=== PATIENT | female | born 2000 | race Hispanic/Latino ===

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

== ENCOUNTER 2018-10-16 15:46 | Emergency (ER) | payer OTHER ==
[2018-10-16] MEDS ORDERED: Ketorolac Tromethamine 30 MG/ML VIAL ONE (16:20)
--- NOTE | 2018-10-16 16:20 | RAD ---
2 views of the chest: 10/16/2018 COMPARISON: None HISTORY: Chest pain, shortness of breath FINDINGS: No pneumothorax or pleural fluid. No focal consolidation or alveolar edema. Heart and media stinal contours are grossly unremarkable. IMPRESSION: No acute findings.
[2018-10-16 16:46] LABS: #Eosinphils 0.1 thou/uL (0.0-0.7); #Lymphocytes 2.2 thou/uL (1.20-3.40); #Monocytes 0.4 thou/uL (0.11-0.59); #Neutrophils 4.4 thou/uL (1.40-6.50); %Basophils 0.4 % (0.0-1.0); %Eosinophils 0.8 % (0.0-10.0); %Lymphocytes 31.1 % (28.0-48.0); %Neutrophils 62.6 % (31.0-61.0); Hemoglobin 13.6 g/dL (12.0-16.0); Mean Corpuscular HGB CONC 35.4 g/dL (32.0-36.0); Mean Corpuscular Hemoglobin 34.6 pg (25.0-35.0); Mean Corpuscular Volume 97.6 fL (78.0-98.0); Platelet Count 261 thou/uL (130-400); RBC Distribution Width 10.8 % (11.5-14.5); Red Blood Cell (RBC) Count 3.93 mill/uL (4.00-5.20); White Blood Cell (WBC) Count 7.1 thou/uL (4.8-10.8)
[2018-10-16 16:53] LABS: BHCG - Serum Negative (NEGATIVE); Pregs Control Background? CLEAR/WHITE (CLR/WHITE); Pregs Control Bar Appear? YES (CONTROL BAR)
[2018-10-16 17:08] LABS: ALT (SGPT) 10 U/L (8-55); AST (SGOT) 15 U/L (5-34); Albumin 4.3 g/dL (3.5-5.0); Alkaline Phosphatase 77 U/L (40-150); Anion Gap 12 mmol/L (10-20); BUN (Urea Nitrogen) 8 mg/dL (7.0-18.7); Bilirubin, Total 1.3 mg/dL (0.2-1.2); CK (CPK) 97 U/L (29-168); Calc. Creatinine Clearance 0 mL/min (70-130); Calcium 8.9 mg/dL (7.8-10.44); Carbon Dioxide 23 mmol/L (22-29); Chloride 106 mmol/L (98-107); Estimated GFR-MDRD Greater than 90; Globulin 2.4 g/dL (2.4-3.5); Glucose 95 mg/dL (70-105); Potassium 3.8 mmol/L (3.5-5.1); Protein, Total 6.7 g/dL (6.0-8.3); Sodium 137 mmol/L (136-145)
== END 2018-10-16 18:50 | disposition home or self-care (01) ==
LOC: ERS 15:46
DX: R07.89 Other chest pain (principal); F32.9 Major depressive disorder, single episode, unspecified; F41.0 Panic disorder [episodic paroxysmal anxiety]
CPT/HCPCS: 36415; 71046; 80053; 82550; 84484; 84703; 85025; 85379; 93005; 96374; J1885

== ENCOUNTER 2019-04-13 09:41 | Emergency (ER) | payer BC, MEDICAID, SELFPAY ==
--- NOTE | 2019-04-13 11:46 | ULT ---
EXAM: Pelvic ultrasound HISTORY: Abdominal pain in a female. COMPARISON: None TECHNIQUE: Multiple grayscale and color Doppler images were obtained in a transabdominal and transvag inal pelvic ultrasound. Spectral analysis of the Doppler waveforms of the ovaries were performed. FINDINGS: CERVIX: No evidence of nabothian cysts. UTERUS: There is a small round anechoic region within the endometrial stripe measuring 0.30 cm. If th is is a gestational sac, this would estimate gestational age at 5 weeks 0 days. This does not contain a yolk sac or pole. A small amount of free fluid is seen in the pelvis. RIGHT OVARY: Normal flow without focal mass. LEFT OVARY: Normal flow without focal mass. IMPRESSION: Possible very early intrauterine .
[2019-04-13 13:24] LABS: Bacteria/HPF None Seen HPF (None Seen); Bilirubin Negative (Negative); Blood, Urine 1+ (Negative); Clarity Clear (Clear); Glucose, Urine (Dipstick) Normal (Negative); Leukocyte 25 Leu/uL (Negative); Mucous/LPF 2+ LPF (<2+); Nitrite Negative (Negative); Protein, Urine (Dipstick) 20 mg/dL (Neg-Trace); Urobilinogen Normal mg/dL (Less than 2)
[2019-04-15 22:04] LABS: GC by PCR Inconclusive (NotDetected)
[2019-04-15 22:09] LABS: Chlamydia by PCR Inconclusive (NotDetected)
== END 2019-04-13 14:25 | disposition home or self-care (01) ==
LOC: ERS 09:41
DX: O98.811 Other maternal infectious and parasitic diseases complicating pregnancy, first trimester (principal); B37.3 Candidiasis of vulva and vagina; O23.591 Infection of other part of genital tract in pregnancy, first trimester; B96.89 Other specified bacterial agents as the cause of diseases classified elsewhere; F32.9 Major depressive disorder, single episode, unspecified; O99.341 Other mental disorders complicating pregnancy, first trimester; F41.0 Panic disorder [episodic paroxysmal anxiety]
CPT/HCPCS: 36415; 76856; 81003; 81015; 84702; 86900; 86901; 87480; 87491; 87510; 87591; 87660; 96360

== ENCOUNTER 2019-04-26 19:49 | Emergency (ER) | payer MEDICAID ==
[2019-04-26] MEDS ORDERED: Ondansetron PF 4 MG/2 ML Vial ONE (20:28)
[2019-04-26 21:02] LABS: Pregnancy Test - Urine (BHCG) POSITIVE (Negative); Pregu Control Background? CLEAR/WHITE (CLR/WHITE); Pregu Control Bar Appear? YES (CONTROL BAR)
[2019-04-26 21:13] LABS: Bilirubin Negative (Negative); Blood, Urine Trace (Negative); Clarity Extra Turbid (Clear); Glucose, Urine (Dipstick) Normal (Negative); Leukocyte 250 Leu/uL (Negative); Nitrite Negative (Negative); Protein, Urine (Dipstick) 70 mg/dL (Neg-Trace)
[2019-04-26 21:15] LABS: Bacteria/HPF 1+ HPF (None Seen)
[2019-04-26] MEDS ORDERED: Promethazine HCl 25 MG/ML VIAL ONE (21:53)
== END 2019-04-26 23:32 | disposition home or self-care (01) ==
LOC: ERS 19:49
DX: O99.281 Endocrine, nutritional and metabolic diseases complicating pregnancy, first trimester (principal); E86.0 Dehydration; O21.9 Vomiting of pregnancy, unspecified; O99.341 Other mental disorders complicating pregnancy, first trimester; F32.9 Major depressive disorder, single episode, unspecified; F41.0 Panic disorder [episodic paroxysmal anxiety]; Z3A.01 Less than 8 weeks gestation of pregnancy
CPT/HCPCS: 81003; 81015; 81025; 96361; 96365; 96375; J2405; J2550

== ENCOUNTER 2019-11-08 08:50 | Observation (INO) | payer OTHER ==
[2019-11-08] MEDS ORDERED: hydrALAZINE 20 MG/ML VIAL SLOW IVP PRN (09:12)
--- NOTE | 2019-11-08 09:19 | PDOC.LDHP ---
Labor and Delivery H&P Chief complaint: contractions HPI: 19YO @ 34.5 WGA presenting to L&D with a CC of contractions. Reports they started at ~0500 but lasted ~2 minutes before stopping. However, they started back at ~0730 and and gradually were felt to be closer together and stronger so she decided to come to L&D for evaluation. Denies any VB or LOF. + FM. Does report increased white/mucoid d/c and some vaginal itching for the last 1-2 days but no dysuria, hematuria, or N/V/D. Has had good PO hydration and PO intake. Reports a Hx of a LTCS for NRFHTs and plan for this is a rLTCS JUANJO for 12/08/19. Current gestational age (weeks): 34 (34.5) Due date: 12/15/19 Grav: 2 Para: 1 (0101) OB History Details: #1: delivery @ 36.1 WGA (initially presented with contractions) via pLTCS for oligohydramnios w/ NRFHTs. Current complications: none Abnormal US findings: No Current medications: pre-omar vitamins Previous surgical history: low tranverse CS Allergies/Adverse Reactions: Allergies Allergy/AdvReac Type Severity Reaction Status Date / Time No Known Allergies Allergy Verified 05/08/19 19:13 Social history: none - Physical Exam Vital signs reviewed and normal: yes General: NAD, breathing through contractions Heart: RRR Lungs: nonlabored breathing Abdomen: NTTP Extremeties: no edema FHT: category 1 - Vaginal Exam cm dilated: 0 Effacement: 0% Station: -3 - OB Labs GBS: unknown - Plan Plan: to OR for section, other -: 19YO @ 34.5 WGA presenting for evaluation for contractions. contractions, r/o labor: - Only some uterine variability noted on the monitor since arrival. Patient appeared comfortable during entire interview & evaluation. FHTs reassuring with variability & accels noted. SVE closed/thick/high. Will obtain a UA & VP3 to screen for UTI and/or vaginal infections that could be contributing to this. Will give 1L of LR & encourage PO hydration as well. Will offer stadol as well. Addendum - Attending - Attending Attestation Date/Time: 11/08/19 1040 I personally evaluated the patient and discussed the management with Dr. Monteiro. 34 week IUP with prev. C/S here with UCs and closed cervix. I agree with the History, Examination, Assessment and Plan documented above.
[2019-11-08 09:28] VITALS: BMI 27.6
[2019-11-08] MEDS ORDERED: Butorphanol Tartrate 1 MG/ML VIAL SLOW IVP SCH (09:45)
[2019-11-08] MEDS ORDERED: Lactated Ringer's 1,000 ML IV SCH ×2 (09:45→11:30)
[2019-11-08 11:15] LABS: Bacteria/HPF None Seen HPF (None Seen); Bilirubin Negative (Negative); Blood, Urine Negative (Negative); Clarity Clear (Clear); Glucose, Urine (Dipstick) Normal (Negative); Ketone, Urine Negative (Negative); Leukocyte 25 Leu/uL (Negative); Nitrite Negative (Negative); Protein, Urine (Dipstick) Negative (Neg-Trace); RBC/HPF 0-3 HPF (0-3); Specific Gravity, Urine 1.007 (1.002-1.036); Squamous Epithelial 0-3 HPF (0-3); Urobilinogen Normal mg/dL (Less than 2); WBC/HPF 0-3 HPF (0-3); pH, Urine 7.5 (5.0-9.0)
--- NOTE | 2019-11-08 11:16 | PDOC.LDPN ---
Labor & Delivery Progress Note - Subjective Subjective: painful contractions - Objective Vital signs reviewed and normal: yes General: breathing through contractions Uterine fundus: palpable contractions (mildly palpable) Dilation: 0 Effacement: 0% Station: -3 FHT: category 1 Coburn contractions every: 3-4 minutes Resuscitative measures: maternal IV fluids, other (IV stadol) Plan: other -: 19YO @ 34.5 WGA presenting for evaluation for contractions. contractions, r/o labor: - Contractions noted q3-4 minutes on the monitor since last evaluation & patient reporting they are more painful. FHTs reassuring with variability & accels noted. Cervix remains closed/thick/high. UA & VP3 results still pending. Will give an additional liter of LR & will now give stadol IV x1 as patient did not want it earlier. Dispo: Continue close monitoring and resuscitative measures in attempt to cease contractions. Addendum - Attending - Attending Attestation Date/Time: 11/08/19 6730 I personally evaluated the patient and discussed the management with Dr. Monteiro. I agree with the History, Examination, Assessment and Plan documented above.
[2019-11-08 11:17] LABS: Urine Culture Reflex Yes Yes
[2019-11-08] MEDS ORDERED: Promethazine HCl 25 MG/ML VIAL IM PRN (12:29)
[2019-11-08] MEDS ORDERED: Ondansetron PF 4 MG/2 ML Vial IVP PRN (12:29)
[2019-11-08] MEDS ORDERED: Acetaminophen 500 MG TAB PO PRN (12:29)
--- NOTE | 2019-11-08 12:34 | PDOC.LDPN ---
Labor & Delivery Progress Note - Subjective Subjective: painful contractions - Objective Vital signs reviewed and normal: yes General: NAD, breathing through contractions Dilation: 0 Effacement: 0% Station: -3 FHT: category 1 Goessel contractions every: irregular contraction pattern on monitor Resuscitative measures: other -: 19YO @ 34.5 WGA presenting for evaluation for contractions. contractions: - Contractions have spaced out on the monitor since the last evaluation after stadol and an additional liter but patient reports they are still regular & painful. FHTs still cat 1. Cervix closed/thick/high on first 2 cervical checks. UA & VP3 notable for no UTI but + for nicole & BV which could explain contractions. Nicole and BV: - Will give PO diflucan & metronidazole to tx infections which could be the cause of her contractions. Dispo: Will admit for observation with continued close monitoring given persistent reported contractions and h/o rapid cervical change with first . Will give 10mg PO nifedipine Q6H for tocolysis and betamethasone 12mg IM Q24 HR x2 for lunch maturity. Addendum - Attending - Attending Attestation Date/Time: 11/08/19 8513 I personally evaluated the patient and discussed the management with Dr. Monteiro. Discussed with Dr. Mclaughlin. Will start steroids and Procardia and observe closely. Will do repeat C/S for active labor. I agree with the History, Examination, Assessment and Plan documented above.
[2019-11-08] MEDS ORDERED: metroNIDAZOLE 500 MG TAB PO SCH (12:45)
[2019-11-08] MEDS: Betamet Acet/Betamet Na Ph 30 MG/5 ML VIAL IM SCH (13:16)
[2019-11-08] MEDS: NIFEdipine 10 MG CAP PO SCH ×2 (13:16→19:14)
--- NOTE | 2019-11-08 18:08 | ULT ---
[facility] History: labor Comparison: None. Findings: Real-time grayscale color and spectral analysis of the gravid uterus was performed. The cervix is closed and measures 3.8 cm in length. Single viable intrauterine with heart r ate documented at 139 bpm. The placental location is anterior and the presentation is vertex. CHIN: 11.3 cm. The average ultrasound age is 35 week 1 day with estimated date of delivery December 09, 2019. Estimated weight is 5 lbs. 13 oz. Impression: 1. Normal single viable . 2. Closed cervix measuring 3.8 cm in length. 3. CHIN: 11.3 cm. 4. Anterior placenta with vertex presentation. 5. Estimated weight of 5 lbs. 13 oz.
[2019-11-08 18:58] LABS: Hemoglobin 11.5 g/dL (12.0-16.0); Mean Corpuscular HGB CONC 33.9 g/dL (32.0-36.0); Mean Corpuscular Hemoglobin 31.8 pg (27.0-31.0); Mean Corpuscular Volume 93.9 fL (78.0-98.0); Mean Platelet Volume 8.5 fL (7.4-10.4); Platelet Count 282 thou/uL (130-400); RBC Distribution Width 11.1 % (11.5-14.5); Red Blood Cell (RBC) Count 3.62 mill/uL (4.20-5.40); White Blood Cell (WBC) Count 14.6 thou/uL (4.8-10.8)
[2019-11-08] MEDS: metroNIDAZOLE 500 MG TAB PO SCH (21:04)
[2019-11-09] MEDS: NIFEdipine 10 MG CAP PO SCH ×4 (01:03→16:37)
--- NOTE | 2019-11-09 03:10 | PDOC.EVN ---
Event Note - Event Note Event Note: 34 6/7 weeks. Sleeping. VSS AF. FHTs remain reassuring. No UCs seen at present. Plan: Continue Procardia and give 2nd dose of BMX later today.
[2019-11-09 08:37] VITALS: BP 117/64; TEMP 99.3
[2019-11-09] MEDS: metroNIDAZOLE 500 MG TAB PO SCH ×2 (08:51→19:30)
[2019-11-09] MEDS ORDERED: Fluconazole 100 MG TAB PO SCH (09:00)
--- NOTE | 2019-11-09 11:11 | PDOC.EVN ---
Event Note - Event Note Event Note: Pt is complaining of bloody show and worsening contractions. repeat sve is closed thick and high. ega 34.6 2nd dose of bmtz today 12:30 [place] fetus vertex with cat one tracing Pt diet advanced to regular will assess for discharge this evening.
[2019-11-09] MEDS: Betamet Acet/Betamet Na Ph 30 MG/5 ML VIAL IM SCH (12:17)
[2019-11-09 13:27] LABS: SARS-CoV-2 MS2 Positive; SARS-CoV-2 N Gene Negative; SARS-CoV-2 S Gene Negative; SARS-CoV-2 by NAA Not Detected (NotDetected); SARS-CoV-2 orf1ab Negative
--- NOTE | 2019-11-10 01:04 | DIS ---
DATE OF ADMISSION: 11/08/2019 DATE OF DISCHARGE: 11/09/2019 PRIMARY OB: Keagan Mclaughiln MD CHIEF COMPLAINT: Uterine contractions. HISTORY OF PRESENT ILLNESS: The patient is a 19-year-old G2, P1 female with an intrauterine at 34 weeks and 5 days, presenting to Labor and Delivery with complaints of contractions. She reported this started in the morning of presentation, lasting 2 minutes. The patient's contractions became closer and closer together and patient decided to come to Labor and Delivery for evaluation. The patient has a history of delivery around the same gestational age by . During her initial evaluation, the patient was noted to have cervical exam closed, but having contractions every 3 to 4 minutes on the monitor that progressed during her stay. Decision was made to admit the patient for steroids for lung maturity and tocolysis. She is also noted to have on initial evaluation bacterial vaginosis and Nicole infection for which treatment was instituted i.e. fluconazole treatment x1 and metronidazole. During her stay, the patient received two doses of betamethasone. She was taken off Procardia this morning on hospital day #2 and throughout the course of the day, the patient continued to have some contractions, though had no change on her cervix. By this evening, the patient had a cervical exam of closed thick and high. tracing remained reactive and category one throughout the stay. Vital signs at the time of discharge, blood pressure is 118/71, heart rate of 82, saturating 99% on room air. She is discharged home with instructions to follow up with Dr. Mclaughlin as scheduled and has been given labor precautions. The patient does live here in [facility] and fetus is in vertex presentation. Job ID: [id number]
== END 2019-11-09 19:30 | disposition home or self-care (01) ==
LOC: L&D/OP 08:50 → L&D 17:02
PROVIDERS: ADMIT Obstetrics & Gynecology; ATTEND Obstetrics & Gynecology
DX: O47.03 False labor before 37 completed weeks of gestation, third trimester (principal); O98.813 Other maternal infectious and parasitic diseases complicating pregnancy, third trimester; B37.3 Candidiasis of vulva and vagina; O23.593 Infection of other part of genital tract in pregnancy, third trimester; B96.89 Other specified bacterial agents as the cause of diseases classified elsewhere; O34.211 Maternal care for low transverse scar from previous cesarean delivery; O09.213 Supervision of pregnancy with history of pre-term labor, third trimester; Z3A.34 34 weeks gestation of pregnancy; Z20.828 Contact with and (suspected) exposure to other viral communicable diseases
CPT/HCPCS: 36415; 76815; 81001; 85027; 86850; 86900; 86901; 87086; 87480; 87510; 87635; 87660; 96361; 96372; 96374; 99285; G0378; J0595; J0702; J2405; U0003

== ENCOUNTER 2019-11-12 09:23 | Inpatient (IN) | payer OTHER ==
[2019-11-12] MEDS ORDERED: Bicitra 30 ML UDCUP ONE (09:38)
[2019-11-12] MEDS ORDERED: PHENYLEPHRINE-NS 100 MCG/ML 10 ML SYRINGE ONE (09:43)
[2019-11-12] MEDS ORDERED: Fentanyl 250 MCG/5 ML VIAL ONE (09:43)
[2019-11-12] MEDS ORDERED: PROPOFOL 20 ML ONE (09:43)
[2019-11-12] MEDS ORDERED: EPHEDRINE 25 MG/5 ML SYRINGE ONE (09:43)
[2019-11-12] MEDS ORDERED: Oxytocin 10 UNITS/ML VIAL ONE ×2 (09:43→10:15)
[2019-11-12] MEDS ORDERED: Succinylcholine Chloride 20 MG/ML 10 ml SYRINGE FS ONE (09:43)
[2019-11-12] MEDS ORDERED: Fentanyl 100 MCG/2 ML VIAL ONE (10:12)
[2019-11-12] MEDS ORDERED: Ondansetron PF 4 MG/2 ML Vial ONE (10:15)
[2019-11-12] MEDS ORDERED: Dexamethasone 4 mg/ml Vial ONE ×2 (10:15→10:32)
[2019-11-12] MEDS ORDERED: Ketorolac Tromethamine 30 MG/ML VIAL ONE (10:15)
[2019-11-12] MEDS ORDERED: Metoclopramide HCl 10 MG/2 ML VIAL ONE (10:17)
[2019-11-12] MEDS ORDERED: Lactated Ringer's 1,000 ML IV SCH ×2 (10:33)
[2019-11-12] MEDS ORDERED: Promethazine HCl 25 MG/ML VIAL IM PRN ×3 (10:33→13:56)
[2019-11-12] MEDS ORDERED: hydrALAZINE 20 MG/ML VIAL SLOW IVP PRN ×2 (10:33→13:56)
[2019-11-12] MEDS ORDERED: Butorphanol Tartrate 1 MG/ML VIAL SLOW IVP PRN (10:33)
[2019-11-12] MEDS ORDERED: Bicitra 30 ML UDCUP PO SCH (10:33)
[2019-11-12] MEDS ORDERED: Ondansetron PF 4 MG/2 ML Vial IVP PRN ×3 (10:33→13:56)
[2019-11-12] MEDS ORDERED: CEFAZOLIN 2 GM in Premix Bag 1 BAG IVPB SCH (10:33)
--- NOTE | 2019-11-12 11:07 | OP ---
DATE OF PROCEDURE: 11/12/2019 TIME OF SERVICE: 10:05. PREOPERATIVE DIAGNOSES: 35 weeks gestation, placental abruption with labor. POSTOPERATIVE DIAGNOSES: 35 weeks gestation, placental abruption with labor. PROCEDURE PERFORMED: Repeat low-transverse section without extension. NEWSPAPER ILLUSTRATOR: Anika Otoole MD, PGY-3 for Family Medicine Residency. ANESTHESIA: Subarachnoid block. QUANTITATIVE BLOOD LOSS: Pending. MEDICATIONS: 2 g Ancef preincision, DVT prophylaxis SCDs. DRAINS: Cuevas to gravity. OPERATIVE FINDINGS: 1. Female infant, cephalic presentation, Apgars and weight pending. Clear fluid with extra membranous blood and clot consistent with abruption. 2. Mildly Couvelaire uterus. 3. Placenta spontaneously without identifiable clot. 4. Anterior uterus consistent with prolonged chronic retroplacental clot, likely secondary to abruption involving approximately 20% of the anterior surface of the uterus. 5. Normal-appearing tubes and ovaries bilaterally. 6. Hemostasis, clear urine. COUNTS: Correct at the end of the procedure. DISPOSITION: Recovery room in good condition. DESCRIPTION OF PROCEDURE: After obtaining appropriate informed consent, the patient was taken to the operating room, where subarachnoid block was achieved without difficulty. The patient was prepped and draped in usual manner for section. Previous Pfannenstiel identified, incised sharply, and carried down to the fascia, extended superiorly and laterally with curved Flores scissors. Rectus dissected off sharply superiorly and inferiorly, divided in midline. Peritoneum entered bluntly to avoid trauma to the underlying viscera. Devyn O retractor was placed inside. Couvelaire lower uterine segment was noted. Vesicouterine peritoneum was incised sharply, dissected off lower uterine segment. Low transverse hysterotomy was performed and infant's head was delivered. Rest of the infant delivered. Cord clamped and cut, and handed off to the team in attendance. Cord blood sample obtained. Cord gas attempted to be obtained, but was not by nursing staff on placenta that delivered spontaneously immediately after the delivery. Hysterotomy was inspected, noted to be without extension and closed using a running locking #1 Monocryl suture x1. Good hemostasis was noted. The patient had moderate nausea during the hysterotomy closure. The bowel was kept inside with a moist laparotomy sponge, which was removed prior to removing the Devyn O retractor. Gutters were irrigated out bilaterally. Reinspection of hysterotomy revealed it to be dry. The Devyn O was removed. Rectus was reapproximated using a #1 Monocryl. Counts were correct and the fascia was reapproximated using a 0 PDS suture x2. Subcutaneous tissue was irrigated rendered hemostatic with Bovie cautery, reapproximated using a 2-0 plain gut. Skin reapproximated using a 4-0 Monocryl and Dermabond. Counts correct x2. The patient entered into routine postoperative care. Job ID: [id number]
[2019-11-12 11:10] LABS: Hemoglobin 12.2 g/dL (12.0-16.0); Mean Corpuscular HGB CONC 32.9 g/dL (32.0-36.0); Mean Corpuscular Hemoglobin 31.3 pg (27.0-31.0); Mean Corpuscular Volume 95.1 fL (78.0-98.0); Platelet Count 334 thou/uL (130-400); RBC Distribution Width 11.3 % (11.5-14.5); White Blood Cell (WBC) Count 13.5 thou/uL (4.8-10.8)
[2019-11-12] MEDS ORDERED: diphenhydrAMINE 50 MG/ML VIAL IVP PRN (11:11)
[2019-11-12] MEDS ORDERED: Promethazine HCl 25 MG SUPP PR PRN (11:11)
[2019-11-12] MEDS ORDERED: HYDROmorphone 2 MG/ML VIAL SLOW IVP PRN (11:11)
[2019-11-12] MEDS ORDERED: Meperidine HCl/PF 25 MG/ML VIAL SLOW IVP PRN (11:11)
[2019-11-12] MEDS ORDERED: Naloxone HCl 0.4 mg/ml Vial IV PRN (11:11)
[2019-11-12] MEDS ORDERED: Ondansetron HCl/PF 4 MG/2 ML Vial IVP PRN (11:11)
[2019-11-12] MEDS ORDERED: Naloxone HCl 0.4 mg/ml Vial IVP PRN ×2 (11:11)
[2019-11-12] MEDS ORDERED: L&D-Morphine 4 MG/ML VIAL SLOW IVP PRN (11:11)
[2019-11-12] MEDS ORDERED: Communication Order-Pharmacy FS SCH (11:15)
--- NOTE | 2019-11-12 11:16 | HP ---
TIME OF SERVICE: 09:30. PRESENTING COMPLAINTS: Increasing abdominal pain with vaginal bleeding at 35 weeks' gestation. HISTORY OF PRESENT ILLNESS: Ms. Vaughan is a 19-year-old, 2, para 1, with EDC of 12/14, who was seen by myself at [facility]. She was admitted earlier in the week with abdominal pain. No vaginal bleeding. Received corticosteroids for concern for possible labor and was discharged home. She was seen in the clinic yesterday, reported occasional abdominal pain, some mildly decreased movement, but had a reassuring heart rate tracing. She reports approximately 15 to 20 minutes prior to presenting that she had sudden increase in pain and vaginal gush of bleeding. She is reporting significant contractions. 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 Blood type B positive, antibody negative. Pap negative. Rubella immune. VDRL nonreactive. Hepatitis B, GC, chlamydia negative. Group B strep not done. COVID test negative three days ago. PAST MEDICAL HISTORY: None. PAST SURGICAL HISTORY: section. ALLERGIES: DENIES. MEDICATIONS: vitamins. SOCIAL HISTORY: Denies tobacco, alcohol, or drug abuse. FAMILY HISTORY: Noncontributory. REVIEW OF SYSTEMS: Noncontributory. PHYSICAL EXAMINATION: GENERAL: female, moderate distress. VITAL SIGNS: Pulse 108, respirations 18, temperature 98.4, and blood pressure 110/72. HEENT: Within normal limits. LUNGS: Clear to auscultation bilaterally. HEART: Regular rate and rhythm. ABDOMEN: Firm and tender. Fundal height 35 cm. FHTs 140s, palpable contractions with minimal relaxation between q.3 minutes. : Vulva without lesions. Vagina is with dark red blood. Cervix is fingertip, 90% effaced, and -2, cephalic. EXTREMITIES: Without clubbing, cyanosis, or edema. Bedside ultrasound confirms a fetus in cephalic presentation with FHTs of 140s to 150s. No visible abruption is noted. IMPRESSION: Vaginal bleeding, contractions, rupture of membranes, 35 weeks' gestation, most consistent with chronic placental abruption, status post corticosteroids 3 to 4 days ago. PLAN: section on urgent basis. FHTs are category 1 to 2 at this time, so we will go ahead and proceed with neuraxial analgesia rather than general anesthesia. We will obtain KB stain. We will administer appropriate antibiotic and DVT prophylaxis. Job ID: [id number]
[2019-11-12 11:41] LABS: HBSAg Index 0.15 S/CO (0-0.99); Hep B Surf Ag Non-Reactive S/CO (NonReactive); Syphilis Antibody Nonreactive (Nonreactive); Syphilis Antibody Index 0.04 S/CO (<1.00 Non-Reactive)
[2019-11-12 11:42] VITALS: BMI 27.9
[2019-11-12 12:32] LABS: HIV (1/2) Antibody/Antigen Non-Reactive (NonReactive)
[2019-11-12] MEDS ORDERED: Meperidine HCl/PF 25 MG/ML VIAL ONE (12:55)
[2019-11-12] MEDS ORDERED: Morphine 4 MG/ML VIAL ONE (13:31)
[2019-11-12] MEDS ORDERED: Lanolin Ointment 7 GM TUBE TOP PRN (13:56)
[2019-11-12] MEDS ORDERED: diphenhydrAMINE 25 MG CAP PO PRN (13:56)
[2019-11-12] MEDS ORDERED: HYDROcodone/Acetaminophen 5/325 mg Tablet PO PRN ×2 (13:56→23:30)
[2019-11-12] MEDS ORDERED: Meperidine HCl/PF 25 MG/ML VIAL IM PRN (13:56)
[2019-11-12] MEDS ORDERED: NS / Oxytocin 40 units/1000ml 1,000 ML IV SCH (13:56)
[2019-11-12] MEDS: Ibuprofen 800 MG TAB PO SCH (14:39)
[2019-11-12] MEDS: Ketorolac Tromethamine 30 MG/ML VIAL IVP PRN (20:06)
[2019-11-12] MEDS: Lactated Ringer's 1,000 ML IV SCH (20:07)
[2019-11-12] MEDS ORDERED: Zolpidem Tartrate 5 MG TAB PO PRN (23:30)
[2019-11-13] MEDS: Ibuprofen 800 MG TAB PO SCH ×4 (02:54→21:27)
[2019-11-13 05:37] LABS: Hemoglobin 8.8 g/dL (12.0-16.0); Mean Corpuscular HGB CONC 34.4 g/dL (32.0-36.0); Mean Corpuscular Volume 95.8 fL (78.0-98.0); Mean Platelet Volume 8.4 fL (7.4-10.4); Platelet Count 239 thou/uL (130-400); RBC Distribution Width 11.2 % (11.5-14.5); Red Blood Cell (RBC) Count 2.66 mill/uL (4.20-5.40); White Blood Cell (WBC) Count 11.3 thou/uL (4.8-10.8)
[2019-11-13] MEDS: Ketorolac Tromethamine 30 MG/ML VIAL IVP PRN (05:41)
[2019-11-13] MEDS: Lactated Ringer's 1,000 ML IV SCH ×3 (06:33→21:27)
[2019-11-13] MEDS: HYDROcodone/Acetaminophen 5/325 mg Tablet PO PRN (08:31)
[2019-11-13] MEDS: Prenatal Vitamin 1 TAB PO SCH (08:31)
[2019-11-13] MEDS: Simethicone Chewable 80 MG TAB PO PRN ×2 (10:57→18:12)
[2019-11-13] MEDS ORDERED: Adacel (T-DAP) 0.5 ML SYRINGE IM ONE (13:56)
[2019-11-14] MEDS: Ibuprofen 800 MG TAB PO SCH (05:47)
[2019-11-14] MEDS: Lactated Ringer's 1,000 ML IV SCH ×2 (05:54→08:18)
--- NOTE | 2019-11-14 07:19 | PDOC.PP ---
Post Progress Note Post Day #: 2 Subjective: Pain well controlled. Ambulating & tolerating PO & passing gas. Minimal lochia. Vitals WNLs overnight. PO intake tolerated: yes Flatus: yes Ambulation: yes Vital Signs (12 hours) Temp Pulse Resp BP Pulse Ox 11/14/19 04:45 98.4 F 86 16 107/51 L 98 11/14/19 00:30 98.3 F 80 18 105/67 99 11/13/19 19:50 98.7 F 83 18 110/67 99 Weight Weight 58.513 kg - Physical Examination General: NAD Cardiovascular: no m/r/g, RRR Respiratory: clear to auscultation bilaterally, non-labored breathing Abdominal: + bowel sounds, lochia, no distention, appropriately TTP Extremities: negative homans (B) Skin: CS incision dry & intact Neurological: no gross focal deficits Psychiatric: A&Ox3, normal affect Result Diagrams: 11/13/19 05:16 Additional Labs: Post Labs Hep Bs Antigen Non-Reactive S/CO (NonReactive) 11/12/19 09:36 Blood Type B POSITIVE 11/12/19 09:36 (1) delivery delivered Code(s): O82 - ENCOUNTER FOR DELIVERY WITHOUT INDICATION Status: Acute - Assessment/Plan 19YO who is PP day #2 s/p C/S @ 38.3 WGA for placental abruption. PP day #2 s/p rLTCS: Tolerating PO, ambulating, voiding, and passing gas normally. Pain well controlled on PO meds. Continue routine post-op/PP care. Dispo: Will d/c home today w/ close f/u with Dr. Mclaughlin in 2 weeks.
[2019-11-14] MEDS: Prenatal Vitamin 1 TAB PO SCH (08:24)
[2019-11-14 08:55] VITALS: BP 126/87; TEMP 98.7
[2019-11-14] MEDS: HYDROcodone/Acetaminophen 5/325 mg Tablet PO PRN (11:53)
== END 2019-11-14 12:40 | disposition home or self-care (01) | DRG 786 ==
LOC: L&D-LIB 09:23 → L&D 10:41 → 3SE 14:35
PROVIDERS: ADMIT Obstetrics & Gynecology; ATTEND Obstetrics & Gynecology
PROC: 10D00Z1 Extraction of Products of Conception, Low, Open Approach (ICD-10-PCS; principal; 2019-11-12)
DX: O60.14X0 Preterm labor third trimester with preterm delivery third trimester, not applicable or unspecified (principal); O45.8X3 Other premature separation of placenta, third trimester; Z3A.35 35 weeks gestation of pregnancy; Z37.0 Single live birth; Z20.828 Contact with and (suspected) exposure to other viral communicable diseases
CPT/HCPCS: 36415; 51702; 85027; 85460; 86780; 86850; 86900; 86901; 87340; 87389; 88307; J0690; J1100; J1200; J1885; J2175; J2270; J2405; J2590; J2704; J2765; J3010

== ENCOUNTER 2020-04-28 09:46 | Emergency (ER) | payer BC, OTHER ==
[2020-04-28] MEDS ORDERED: methylPREDNISolone Sod Succ/PF 125 MG/2 ML VIAL ONE (10:59)
[2020-04-28] MEDS ORDERED: Promethazine HCl 25 MG/ML VIAL ONE (10:59)
[2020-04-28] MEDS ORDERED: Ondansetron PF 4 MG/2 ML Vial ONE (10:59)
[2020-04-28 11:01] LABS: #Monocytes 0.4 thou/uL (0.11-0.59); #Neutrophils 5.2 thou/uL (1.40-6.50); %Basophils 0.5 % (0.0-1.0); %Eosinophils 0.6 % (0.0-10.0); %Lymphocytes 26.2 % (21.0-51.0); %Monocytes 5.5 % (0.0-10.0); %Neutrophils 67.4 % (42.0-75.0); Hemoglobin 14.2 g/dL (12.0-16.0); Mean Corpuscular HGB CONC 34.8 g/dL (32.0-36.0); Mean Corpuscular Hemoglobin 31.5 pg (27.0-31.0); Mean Corpuscular Volume 90.6 fL (78.0-98.0); Platelet Count 357 thou/uL (130-400); RBC Distribution Width 14.1 % (11.5-14.5); White Blood Cell (WBC) Count 7.7 thou/uL (4.8-10.8)
[2020-04-28 11:21] LABS: ALT (SGPT) 40 U/L (8-55); AST (SGOT) 44 U/L (5-34); Albumin 4.7 g/dL (3.5-5.0); Alkaline Phosphatase 111 U/L (40-110); Anion Gap 15 mmol/L (10-20); BUN (Urea Nitrogen) 8 mg/dL (7.0-18.7); Bilirubin, Total 3.5 mg/dL (0.2-1.2); Calc. Creatinine Clearance 0 mL/min (70-130); Calcium 9.5 mg/dL (7.8-10.44); Carbon Dioxide 22 mmol/L (22-29); Chloride 104 mmol/L (98-107); Globulin 3.1 g/dL (2.4-3.5); Glucose 104 mg/dL (70-105); Lipase 14 U/L (8-78); Potassium 3.2 mmol/L (3.5-5.1); Protein, Total 7.8 g/dL (6.0-8.3); Sodium 138 mmol/L (136-145)
== END 2020-04-28 13:47 | disposition home or self-care (01) ==
LOC: ERS 09:46
DX: O21.0 Mild hyperemesis gravidarum (principal)
CPT/HCPCS: 80053; 83690; 85025; 96365; 96366; 96375; J2405; J2550; J2930